=== PATIENT | female | born 1995 | race Caucasian/White ===

== ENCOUNTER 2017-04-08 02:38 | Inpatient (IN) | payer OTHER, SELFPAY ==
[~2017-04-08 02:38] MED LIST: ED K+1010 MEQ PO; PRENATAL1 EACH PO; ZOFRAN4 MG PO
[2017-04-09] MEDS ORDERED: IBUPROFEN800 M1 PO (11:13)
[2017-04-09] MEDS ORDERED: NORCO 5-325 TA1 EACH PO (11:14)
== END 2017-04-09 19:30 | DRG 775 ==
LOC: LDR 02:38 → OBGD 13:45
PROVIDERS: ADMIT Advanced Practice Midwife
PROC: 10E0XZZ Delivery of Products of Conception, External Approach (ICD-10-PCS; principal; 2017-04-08)
PROC: 10907ZC Drainage of Amniotic Fluid, Therapeutic from Products of Conception, Via Natural or Artificial Opening (ICD-10-PCS; 2017-04-08)
PROC: 4A1HXCZ Monitoring of Products of Conception, Cardiac Rate, External Approach (ICD-10-PCS; 2017-04-08)
DX: O80 Encounter for full-term uncomplicated delivery (principal); Z37.0 Single live birth; Z3A.40 40 weeks gestation of pregnancy